=== PATIENT | female | born 1955 | race American Indian/Alaskan Native ===

== ENCOUNTER 2021-12-05 10:10 | Emergency (ER) | payer OTHER, MEDICARE ==
[2021-12-05] MEDS ORDERED: ONDANSETRON 4 MG/2 ML INJ ONE (10:15)
[2021-12-05] MEDS ORDERED: ONDANSETRON 4 MG/2 ML INJ IV ONE (10:16)
--- NOTE | 2021-12-05 10:31 | Consultation ---
History of Present Illness Consult date: 12/05/21 History of present illness: [facility] Consult Note # Demographics Consult Type: Acute Stroke Level 1 (0-4.5 hrs) Patient Location: Emergency Room First Name: Tali Last Name: Lit Date of : 1955 Age: 66 Gender: Female Facility: [facility] Time of Initial Page ( Time): 12/05/2021, 10:14 Time of Return Call ( Time): 12/05/2021, 10:15 # HPI History: Per EMS, patient reported neck pain & not feeling well. Son mentioned altered with repetition. Semi-alert to painful stimuli. Last Known Normal: I have collected independent history specific to time last normal or last known well. We have collaborated with the provider and at this time, we have the most current timeline with the information that is available. 9:50am # Scores Time of exam and NIHSS (): 12/05/2021, 10:22 Level of Consciousness 1a: [2] = Not alert; requires strong or painful stim LOC Questions 1b: [2] = Answers neither correctly LOC Commands 1c: [2] = Performs neither correctly Best Gaze 2: [0] = Normal Visual 3: [3] = Bilateral hemianopia Motor Arm Left 5a: [2] = Some effort against gravity Motor Arm Right 5b: [2] = Some effort against gravity Motor Leg Left 6a: [2] = Some effort against gravity Motor Leg Right 6b: [2] = Some effort against gravity Limb Ataxia 7: [0] = Absent Sensory 8: [2] = Severe to total sensory loss Best Language 9: [3] = Mute Dysarthria 10: [2] = Severe dysarthria Extinction and Inattention 11: [0] = No abnormality NIHSS Total: 24 Modified Katia Scale (mRS) pre-stroke: [0] = No Symptoms Modified Katia Scale total: 0 # Exam SBP: 160 DBP: 76 # ROS Unable to obtain ROS: altered mentation # PMH-FH-SH Past Medical History: hypertension Syncopal episode reported one year ago Allergies: NKDA # Data Glucose: [address] personally read by me ( Time): 12/05/2021, 10:[address]: hemorrhage preliminarily reviewed by me, please refer to radiology read for official reading # Assessment Impression: Intraventricular hemorrhage # Plan Thrombolytic/Intervention: NOT IV Thrombolysis or IA Intervention candidate Thrombolytic Exclusion (< 3 hour window): ICH Thrombolytic Exclusion (3-4.5 hour window): ICH Intraarterial Exclusion: ICH Target Blood Pressure: SBP < 140 Imaging: (urgency: STAT): CT Angiogram Head and CT Angiogram Neck AND call back with results if abnormal Imaging: (urgency: routine): MRI Brain with AND without contrast Once stable, to assess for associated structural pathology. Repeat head CT in six hours to evaluate for interval hemorrhage stability. Diagnostic Test: EEG Therapy/Evaluation: PT/OT evaluation speech/swallow consultation Medication: Can consider levetiracetam 1g IV x1 load given limited clinical exam & IVH while setting up for EEG monitoring. DVT Prophylaxis: SCD Hemorrhage Reversal: Can consider DDAVP 0.4mcg/kg IVx1 given patient's history of aspirin use, if felt appropriate with Neurosurgery. Other: consult neurosurgery telemetry monitoring seizure precautions I have discussed my recommendations with the referring provider Additional Recommendations: Neuro-ICU evaluation & management Low clinical threshold for hyperosmolar therapy (mannitol or hypertonic saline) Disposition: transfer to ICU Medications and Allergies Active Meds: Active Medications Ondansetron HCl (Ondansetron 4 Mg/2 Ml Inj) 4 mg IV ONCE ONE Stop: 12/05/21 10:17
[2021-12-05] MEDS ORDERED: levETIRAcetam 1000 MG/NS 0.75% 1,000 MG/100 ML BAG IV ONE (10:35)
[2021-12-05] MEDS ORDERED: SUCCINYLCHOLINE CHLORIDE 200 MG/10 ML INJ MDV ONE (10:38)
[2021-12-05] MEDS ORDERED: ETOMIDATE 20 MG/10 ML INJ IV ONE ×2 (10:38→11:04)
[2021-12-05] MEDS ORDERED: SODIUM CHLORIDE 0.9% 1000 ML 1,000 ML ONE (10:43)
--- NOTE | 2021-12-05 10:51 | Cat Scan Report ---
CT head/brain wo con INDICATION / CLINICAL INFORMATION: 66 years Female; CODE STROKE CALL [phone]. TECHNIQUE: Routine CT head without contrast. All CT scans at this location are performed using CT dos e reduction for ALARA by means of automated exposure control. COMPARISON: None. FINDINGS: BRAIN / INTRACRANIAL CONTENTS: There is extensive intraventricular hemorrhage with complete opacifica tion of the third and fourth ventricles. There is associated mild hydrocephalus on this single exam. The hemorrhage appears to extend within the foramen of [place]endie. There is extensive effacement of the basal cisterns as well as the sylvian fissures which would also be concerning for extensive subarachnoid hemorrhage. This finding may be exacerbated by a component o f mass effect. ORBITS: No significant abnormality of visualized orbits. SINUSES / MASTOIDS: No significant abnormality in the visualized paranasal sinuses or mastoid air estevan ls. CRANIOCERVICAL JUNCTION: No significant abnormality. ADDITIONAL FINDINGS: None. IMPRESSION: 1. There is extensive intraventricular hemorrhage with associated mild hydrocephalus. Additionally, t here is also extensive effacement of the basal cisterns and sylvian fissures indicative of subarachno id hemorrhage as described. The findings represent a positive clinical test result and were discovered at 9:35 AM and called jasmin rgently to Dr. Foreman in the ER at 9:37 AM Central standard time. Signer Name: Abel Wells MD Signed: 12/05/2021 10:38 AM Workstation Name: [id number]
--- NOTE | 2021-12-05 10:53 | Emergency Department Report ---
ED Neuro Deficit HPI - General Stated Complaint: ALTERED MENTAL STATUS Time Seen by Provider: 12/05/21 10:14 Source: family, EMS - History of Present Illness Initial Comments: Patient is 66 years old female with history of hypertension. Patient brought to the emergency room via EMS for evaluation of altered mental status. EMS is accompanied by her son who is a paramedics and able to give more history. He stated that she called him this morning complaining of neck pain. He stated that he came to see him and then he found her altered and unable to speak clear. Upon arrival to the ER patient is obtunded and snoring and responding only to painful stimuli. Stroke protocol immediately initiated and patient moved to CT for stat CT brain without contrast. CT brain showed intraventricular hemorrhage with hydrocephalus. Reassessment of the patient showed GCS now of 3. I immediately intubated the patient using a glidoscope. Patient successfully intubated by me with visualization of tube passing through the cords with good breath sounds on both sides. -: Sudden, This morning Location: altered Presenting Symptoms: Present: Altered Mental Status - Related Data Allergies/Adverse Reactions: Allergies Allergy/AdvReac Type Severity Reaction Status Date / Time No Known Allergies Allergy Verified 12/05/21 10:59 ED Review of Systems ROS: Stated complaint: ALTERED MENTAL STATUS Other details as noted in HPI Comment: Unobtainable due to pts medical conditions ED Neuro Physical Exam - General General appearance: obtunded Suspected Stroke: Yes - Head Head exam: Present: atraumatic, normocephalic, normal inspection - Eye Eye exam: Present: normal appearance - ENT ENT exam: Present: normal exam, normal orophraynx, mucous membranes moist - Neck Neck exam: Present: normal inspection, full ROM. Absent: tenderness, meningismus - Respiratory Respiratory exam: Present: normal lung sounds bilaterally - Cardiovascular Cardiovascular Exam: Present: regular rate, normal rhythm, normal heart sounds - GI/Abdominal GI/Abdominal exam: Present: soft, normal bowel sounds. Absent: distended, tenderness, guarding, rebound, rigid - Extremities Exam Extremities exam: Present: normal inspection, full ROM, normal capillary refill. Absent: tenderness - Back Exam Back exam: Present: normal inspection, full ROM. Absent: CVA tenderness (R), CVA tenderness (L) - Neurological Exam Neurological exam: Present: altered - NIHSS Assessment Interval: Baseline 1a. Level of Consciousness: coma/unresponsive 1b. LOC Questions: answers no questions correctly 1c. LOC Commands: performs no tasks correctly 2. Best Gaze: normal 3. Visual: bilateral hemianopia 4. Facial Palsy: normal symmetrical movement 5b. Motor Arm Right: no movement 5a. Motor Arm Left: no movement 6a. Motor Leg Left: no movement 6b. Motor Leg Right: no movement 7. Limb Ataxia: absent 8. Sensory: coma/unresponsive 9. Best Language: coma/unresponsive 10. Dysarthria: intubated or other barrier 11. Extinction/Inattention: no abnormality Total Score: 31 Stroke Severity: Severe Stroke - Psychiatric Psychiatric exam: Present: normal mood - Skin Skin exam: Present: warm, intact, normal color - Intubation Time Out Performed: Yes Sedative: Etomidate Paralytic: Succinylcholine Laryngoscope: Titus Size: 4 ET Tube Size: 7.5 Tube Secured Location: teeth Tube Placement Confirmation: visualized tube passing t, equal breath sounds bilat, no breath sounds over epi, confirmation by capnometr Patient Tolerated Procedure: well, no complications Intubation Complications: none - Radiology Data Radiology results: report reviewed - Medical Decision Making Patient is 66 years old female with history of hypertension. Patient brought to the emergency room via EMS for evaluation of altered mental status. EMS is accompanied by her son who is a paramedics and able to give more history. He stated that she called him this morning complaining of neck pain. He stated that he came to see him and then he found her altered and unable to speak clear. Upon arrival to the ER patient is obtunded and snoring and responding only to painful stimuli. Stroke protocol immediately initiated and patient moved to CT for stat CT brain without contrast. CT brain showed intraventricular hemorrhage with hydrocephalus. Reassessment of the patient showed GCS now of 3. I immediately intubated the patient using a glidoscope. Patient successfully intubated by me with visualization of tube passing through the cords with good breath sounds on both sides. Immediately discussed patient with Dr. Grayson Patterson, neurologist at [facility]. Inform about the patient and stated that he will get back to me as soon as possible. Dr. Wood called back and accepted the patient to be transferred to [facility] ICU. Critical Care Time: Yes Critical care time in (mins) excluding proc time.: 45 Critical care attestation.: If time is entered above; I have spent that time in minutes in the direct care of this critically ill patient, excluding procedure time. ED Disposition Clinical Impression: Acute intracranial hemorrhage Disposition: 51 HOSPICE/MEDICAL FACILITY Is pt being admited?: No Condition: Stable
--- NOTE | 2021-12-05 10:55 | Cat Scan Report ---
CT angio neck INDICATION / CLINICAL INFORMATION: 66 years Female; stroke sx. TECHNIQUE: Thin cut axial images obtained through the head during IV bolus contrast administration. S agittal, coronal, and 3 plane MIP reconstructions performed by the technologist. NASCET type criteria used evaluate stenoses. All CT scans at this location are performed using CT dose reduction for ALAR A by means of automated exposure control. COMPARISON: None available. FINDINGS: CAROTID ARTERIES: The motion and beam hardening degrade the image quality, particularly at the cervic othoracic inlet. However, the visualized cervical carotid arteries demonstrate appropriate caliber wi thout significant focal stenosis. VERTEBRAL ARTERIES: The proximal vertebral arteries are also present. The motion and beam hardening a t. 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 The left vertebral artery is nilsa rly dominant without evidence of significant focal stenosis. ARCH: There is no clear evidence of significant stenosis of the origins of the arch of vessels. ADDITIONAL FINDINGS: There are multilevel degenerative the changes involving visualized cervical spin e. IMPRESSION: There is no significant stenosis involving cervical carotid arteries by NASCET to criteria. 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 Signer Name: Abel Wells MD Signed: 12/05/2021 10:49 AM Workstation Name: [id number]
[2021-12-05] MEDS ORDERED: SUCCINYLCHOLINE CHLORIDE 200 MG/10 ML INJ MDV IV ONE (11:04)
--- NOTE | 2021-12-05 11:06 | Cat Scan Report ---
CT angio head INDICATION / CLINICAL INFORMATION: 66 years Female; stroke sx 100 ML OMNI 300 . TECHNIQUE: Thin cut axial images obtained through the head during IV bolus contrast administration. S agittal, coronal, and 3 plane MIP reconstructions performed by the technologist. NASCET type criteria used evaluate stenoses. Automated exposure control utilized for radiation reduction purposes. COMPARISON: None available. FINDINGS: INTERNAL CAROTID ARTERIES: There is no significant focal stenosis involving the intracranial ICAs by NASCET criteria. t VERTEBROBASILAR SYSTEM: There is developmental origin of the posterior cerebral arteries bilate rally with associated hypoplasia of the vertebrobasilar system. Otherwise, no further definitive foca l stenosis is identified. CEREBRAL ARTERIES: There are dilated of vessels along the posterior, superior left cerebellum near th e tentorium and medial left transverse sinus may pattern compatible with arteriovenous malformation. The nidus measures approximately 2.1 cm transverse by 1.0 cm AP and greatest dimensions. There is rel ative increased opacification of the adjacent left transverse sinus compatible with early superficial drainage at. There also appear to be relative a prominent draining vessels extending inferiorly with prominent loop and more focal dilatation measuring 2 to 3 mm along the posterior aspect of the fourt h ventricle. This appears to be branch of the left PICA which appears to prominently supply the AVM a ny focal aneurysmal dilatation may be the site of hemorrhage given the findings seen on the earlier C T which includes extensive intraventricular and subarachnoid hemorrhage. 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 ADDITIONAL FINDINGS: Remainder of the surrounding soft tissues are grossly normal. 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 Signer Name: Abel Wells MD Signed: 12/05/2021 11:01 AM Workstation Name: [id number]
[2021-12-05] MEDS ORDERED: SODIUM CHLORIDE 0.9% 1000 ML 1,000 ML IV ONE (11:09)
[2021-12-05] MEDS ORDERED: MIDAZOLAM/NS Drip 100mg/100ml 100 MG/100 ML BAG IV SCH (11:30)
[2021-12-05] MEDS ORDERED: niCARdipine DRIP 0 MG/0 ML BAG ONE (11:43)
[2021-12-05 11:50] LABS: Hematocrit 39.5 % (30.3-42.9); Hemoglobin 13.2 gm/dl (10.1-14.3); Mean Corpuscular HGB Conc 34 % (30-34); Mean Corpuscular Volume 85 fl (79-97); Platelet Count 190 K/mm3 (140-440); Red Blood Count 4.63 M/mm3 (3.65-5.03); Red Cell Distribution Width 14.3 % (13.2-15.2)
[2021-12-05] MEDS ORDERED: SODIUM CHLORIDE 0.9% 100 ML IVPB IV SCH (12:00)
[2021-12-05] MEDS ORDERED: ONDANSETRON 4 MG/2 ML INJ IV SCH (12:00)
[2021-12-05] MEDS ORDERED: niCARdipine 50 MG in SODIUM CHLORIDE 0.9% 250ML 230 ML IV SCH (12:00)
[2021-12-05] MEDS ORDERED: levETIRAcetam 1000 MG/NS 0.75% 1,000 MG/100 ML BAG IV SCH (12:00)
[2021-12-05 12:01] LABS: INR 1.04 (0.87-1.13)
[2021-12-05 12:02] LABS: Partial Thromboplastin Time 31.5 Sec. (24.2-36.6); Thrombin Time 19.9 Sec. (15.1-19.6)
[2021-12-05 12:10] LABS: Creatine Kinase MB 4.4 ng/mL (0.0-4.0)
[2021-12-05 12:11] LABS: BUN/Creatinine Ratio 16; Blood Urea Nitrogen 13 mg/dL (7-17); Calcium 8.3 mg/dL (8.4-10.2); Hemolysis Index 25
[2021-12-05 12:18] LABS: ABG Base Excess -4.4 mmol/L (-2.0-3.0); ABG HCO3 19.8 mmol/L (20.0-26.0); ABG Methemoglobin 0.6 % (0.0-1.5); ABG Oxygen Saturation 99.5 % (95.0-99.0); ABG PCO2 34.3 mm Hg; ABG PH 7.379 pH Units (7.350-7.450)
[2021-12-05 12:22] VITALS: BP 166/50
[2021-12-05 12:36] LABS: Basophils % (Manual) 0 % (0.0-1.8); Eosinophils % (Manual) 0 % (0.0-4.3); Platelet Estimate Consistent w Auto; RBC Morphology Normal; Total Cells Counted 100
--- NOTE | 2021-12-06 10:31 | Electrocardiograph Report ---
[facility] Test Date: 2021-12-05 Test Time: 11:10:31 Pat Name: RACHEL MONTEJO Department: Room: Gender: F [employer] Supervisor: SALINAS : 1955 Requested By: MARV JUÁREZ Order Number: [id number] Reading MD: Robert Malhotra Measurements Intervals [place] Rate: 45 P: -10 IA: 204 QRS: -22 QRSD: 95 T: 7 QT: 524 QTc: 454 Interpretive Statements Sinus bradycardia Left ventricular hypertrophy No previous ECG available for comparison Electronically Signed On 12-06-2021 10:31:03 EDT by Robert Malhotra
== END 2021-12-05 12:19 | disposition hospice, inpatient (51) ==
LOC: ED 10:10
DX: I62.9 Nontraumatic intracranial hemorrhage, unspecified (principal)
CPT/HCPCS: 31500; 36415; 70450; 70496; 70498; 80048; 82550; 82553; 82803; 84484; 85007; 85025; 85610; 85670; 85730; 93005; 96361; 96374; 96375; 99291; J0330; J2405; J3490; J7030; J7050; Q9967; 80320; 94002; 99285; G0480